=== PATIENT | male | born 2000 | race Caucasian/White ===

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

== ENCOUNTER 2022-02-01 15:08 | Emergency (ER) | payer MEDICAID, SELFPAY ==
[2022-02-01 15:16] VITALS: BP 124/74; PULSE 117; RESP 18; TEMP 37.3; O2SAT 96
[2022-02-01] MEDS: Normal Saline 1,000 ML 1000 ML IV (16:05)
--- NOTE | 2022-02-01 16:06 | W.ED.GENAD ---
Discharge Plan Disposition Patient Disposition: HOME Condition: Stable Discharge Details Clinical Impression: Mononucleosis, Elevated liver transaminase level Primary Care Provider: Jasmina Martin ED Provider: Martha Katz Home Meds and New Rx's Prescriptions: No Action No Known Home Meds Discharge Instructions Instructions: Mononucleosis (ED) Additional Instructions: At this time your liver enzymes are elevated this can be expected with mononucleosis. However a hepatitis panel which is a send out was added onto your labs. This usually will be resulted in approximately 2 to 3 days. Please follow-up with your dental therapist or primary care provider next week for reevaluation and recheck of the lab tests. Please return to the ER for any worsening abdominal pain, fever not relieved by Tylenol or ibuprofen, or concerns. Follow up with primary care provider in 3-5 days. Return to ED sooner if any worsening or concerns. Increase oral fluids. Use some [id number] throat numbing medicine such as Cepacol lozenges or similar. Referrals: Jasmina Martin MD [Primary Care Provider] - 5 days ([facility] Re-check and elevated liver enzymes re-eval) Discharge Data Discharge Date/Time-TO BE ENTERED AT DEPARTURE: 02/01/22 17:31 Medical Decision Making 22 year old male presents to the ED with chief c/o of sore throat, body aches, sweats, headaches and mild abdominal pain after being diagnosed with [facility] on Friday. He denies and recent abdominal trauma, denies N/V/D. Has not had any Ibuprofen or tylenol today. Upon initial exam, he is stable, HR 85, nondistended abdomen, nontender with palpation. Posterior oropharynx is erythemic, no exudate. At this time CBC, CMP 1 L normal saline ordered. CBC shows white blood cell count of 23,000, absolute lymphocytes 16.34, monocytes 3.22, this is to be expected with the mononucleosis infection. Patient also has some elevated liver enzymes AST is 168, ALT 169 alk phos is 261. After further questioning patient does endorse daily alcohol use he reports approximately 6 drinks a day. He reports not drinking for the last week due to illness. Hepatitis panel sent instructed mom and patient to follow-up with primary care next week to have liver enzymes repeated and reevaluation. At this time heart rate is NSR at a rate of 84. Discussed to continue with ibuprofen or Advil increase fluids and to be seen sooner for any worsening abdominal pain or concerns. Mom and patient verbalized understanding and are in agreement with the plan. I did offer CT abdomen pelvis and shared decision making performed and at this time opted to forego imaging. Discussed tricked return instructions with mom and patient. Discussed follow-up care and home care. This text was generated using StudyRoomation system, please disregard any oddities of phrase or misspellings. This text was generated using [employer]Room[employer] system, please disregard any oddities of phrase or misspellings. Medical Records Medical records reviewed: Yes I reviewed the patient's medical records. Lab Data Lab results reviewed: Yes I reviewed the patient's lab results. Labs: Laboratory Tests Range/Units 02/01/22 02/01/22 16:05 16:05 WBC (4.4-10.8) 10^3/uL 23.01 H RBC (4.36-5.78) 10^6/uL 5.41 Hgb (13.5-17.5) g/dL 16.1 Hct (40.0-50.0) % 47.6 MCV (80-95) fL 88 MCH (27.0-33.0) pg 29.8 MCHC (32.0-36.0) % 33.8 RDW (11.8-14.1) % 12.6 Plt Count (130-400) 10^3/uL 156 MPV (8.0-11.0) fL 10.3 Immature Gran % 0.0 Neutrophils % 15.0 Lymphocytes % 19.0 Atypical Lymphs % 52 Monocytes % 14.0 Eosinophils % 0.0 Basophils % 0.0 Nucleated RBC % (0.0-0.3) % 0.0 Absolute Neutrophils (1.2-6.7) 10^3/uL 3.45 Absolute Lymphocytes (1.2-3.4) 10^3/uL 16.34 H Absolute Monocytes (0.1-0.8) 10^3/uL 3.22 H Absolute Eosinophils (0.0-0.7) 10^3/uL 0.00 Absolute Basophils (0.0-0.2) 10^3/uL 0.00 RBC Morphology Normal Sodium (136-145) mmol/L 136 Potassium (3.5-5.1) mmol/L 4.0 Chloride (98-107) mmol/L 101 Carbon Dioxide (21.0-32.0) mmol/L 24.5 Anion Gap (3-11) mmol/L 10.5 BUN (7-18) mg/dL 7 Creatinine (0.70-1.30) mg/dL 1.0 Estimated GFR/1.73 m2 (mL/min/1.73m2) >= 60.00 Glucose (74-106) mg/dL 89 Calcium (8.5-10.1) mg/dL 8.9 Total Bilirubin (0.2-1.0) mg/dL 0.5 AST (15-37) U/L 160 H ALT (16-63) U/L 169 H Alkaline Phosphatase (46-116) U/L 261 H Total Protein (6.4-8.2) g/dL 8.2 Albumin (3.4-5.0) g/dL 3.3 L HPI General Mode of arrival: ambulatory. Date/Time Provider Initiated Documentation: 02/01/22 15:41. Limitations to Documentation: no limitations. Information obtained by: patient, family (Mom), RN notes reviewed and old records reviewed. HPI Narrative: 22 year old male presents to the ED with chief c/o of sore throat, body aches, sweats, headaches and mild abdominal pain after being diagnosed with [facility] on Friday. He denies and recent abdominal trauma, denies N/V/D. Has not had any Ibuprofen or tylenol today. Upon initial exam, he is stable, HR 85, nondistended abdomen, nontender with palpation. Posterior oropharynx is erythemic, no exudate. Related Data Home Medications Medication Instructions Recorded Confirmed Unknown [No Known Home Meds] 09/28/18 02/01/22 Allergies Allergy/AdvReac Type Severity Reaction Status Date / Time No Known Allergies Allergy Verified 02/01/22 15:19 General Stated Complaint: Sorethroat IDALIA: 3 Review of Systems All systems reviewed & are unremarkable except as noted in HPI and below Constitutional Constitutional: Reports body ache(s), Reports fatigue, Reports headache(s) and Reports lethargy ENT Ears, Nose, Mouth, and Throat: Reports as per HPI, Reports headache(s), Denies neck mass, Denies neck pain and Reports sore throat Gastrointestinal Gastrointestinal: Denies melena, Denies diarrhea, Denies nausea and Denies vomiting Musculoskeletal Musculoskeletal: Denies neck pain Neurologic Neurologic: Reports headache(s) Endocrine Endocrine: Reports fatigue PFSH All Active Problems Elevated liver transaminase level (Acute) Mononucleosis (Acute) Medical History Concussion Family History Mother Neoplasm breast ca Asthma childhood Father No problems noted. Grandparent Diabetes Essential hypertension Heart disease Other Depression Social History Smoking/Tobacco Use Status: Never Smoking risk assessment performed?: Yes Alcohol Intake: current Alcohol Intake frequency: a few times a week Alcohol type: beer Drug use: Daily Substance use type: marijuana Pets and animals: Yes Pets and animals: cat(s) Do you feel safe at home: Yes Do you feel safe in your relationship?: Yes Exam Narrative Exam Narrative: constitutional: Alert and oriented x3. Appears stated age. Normal body habitus. Head: Normocephalic, no trauma. Eyes: Pupils PERRL, Red reflex noted, EOM's intact. Eyelids symmetrical without lesions, discharge, or swelling. ENT: Bilateral TM's WNL, External ear normal to inspection, no mastoid TTP, swelling, or erythema, Nasal turbinates WNL, no nasal discharge. Normal dentition, Posterior pharynx erythemic, no exudate. Chest: RRR, Normal S1, S2, distal pulses intact. Resp: Lungs clear to auscultation bilaterally, no wheezes, rales, or rhonchi. Abdomen: Soft, non-distended, Normoactive bowel sounds all 4 quads. Nontender all 4 quadrants Musculoskeletal: Normal gait, 5/5 strength to all four extremities. Skin: No suspicious rashes or lesions. Capillary refill less than 2 sec. Neurologic: Cranial nerves II-XII intact. Alert and oriented x 3. Motor: No deficits noted. Hematologic/Lymphatic: No ecchymosis, no cervical lymphadenopathy. Course Vital Signs Vital signs: Vital Signs Temperature 37.3 C 02/01/22 15:16 Pulse 117 H 02/01/22 15:16 Respiratory Rate 18 02/01/22 15:16 Blood Pressure 124/74 02/01/22 15:16 Pulse Oximetry 96 02/01/22 15:16 Temperature 37.3 C 02/01/22 15:16 Temperature Source Skin 02/01/22 15:16 Pulse 117 H 02/01/22 15:16 Respiratory Rate 18 02/01/22 15:16 Blood Pressure 124/74 02/01/22 15:16 Blood Pressure Position Sitting 02/01/22 15:16 Pulse Oximetry 96 02/01/22 15:16 Oxygen Delivery Method Room Air 02/01/22 15:16 Oxygen Flow Rate 0 02/01/22 15:16 Pain Level 7 02/01/22 15:16 Comment 02/01/22 15:16
[2022-02-01 16:17] LABS: Abs Immature Grans 0.04 10^3/uL (0.0-0.06); HCT 47.6 % (40.0-50.0); HGB 16.1 g/dL (13.5-17.5); MCH 29.8 pg (27.0-33.0); MCHC 33.8 % (32.0-36.0); MCV 88 fL (80-95); MPV 10.3 fL (8.0-11.0); Platelet Count 156 10^3/uL (130-400); RBC 5.41 10^6/uL (4.36-5.78); RDW 12.6 % (11.8-14.1); RDW-SD 40.9 fL; WBC 23.01 10^3/uL (4.4-10.8)
[2022-02-01] MEDS: Acetaminophen 500 MG TAB PO (16:24)
[2022-02-01 16:30] LABS: ALT 169 U/L (16-63); AST 160 U/L (15-37); Albumin 3.3 g/dL (3.4-5.0); Alkaline Phosphatase 261 U/L (46-116); Anion Gap 10.5 mmol/L (3-11); BUN 7 mg/dL (7-18); Bilirubin, Total 0.5 mg/dL (0.2-1.0); CO2 24.5 mmol/L (21.0-32.0); Calcium 8.9 mg/dL (8.5-10.1); Chloride 101 mmol/L (98-107); Glucose 89 mg/dL (74-106); Sodium 136 mmol/L (136-145); Total Protein 8.2 g/dL (6.4-8.2)
[2022-02-01 16:37] LABS: Absolute Lymphocyte Count 16.34 10^3/uL (1.2-3.4); Absolute Monocyte Count 3.22 10^3/uL (0.1-0.8); Absolute Neutrophil Count 3.45 10^3/uL (1.2-6.7); Atypical Lymphocytes % 52; Diff Comment Manual Differential; RBC Morphology Normal
--- NOTE | 2022-02-01 17:02 | NUR.NOTE ---
Nursing Note: PT INFO FAXED TO [facility] FOR FOLLOW UP IN A WEEK TO HAVE LIVER ENZYMES REEVALUATED. STEPHANIE ED
[2022-02-01 17:19] VITALS: BP 114/68; PULSE 79; RESP 16; TEMP 37; O2SAT 97
[2022-02-04 11:40] LABS: Hepatitis A Antibody IgM Negative (Negative); Hepatitis B Core Antibody Negative (Negative); Hepatitis B surface Ag Negative (Negative); Hepatitis C Ab w Rflx HCV PCR Negative (Negative)
== END 2022-02-01 17:31 | disposition home or self-care (01) ==
PROVIDERS: Emergency Provider Registered Nurse Emergency
DX: B27.90 Infectious mononucleosis, unspecified without complication (principal); R74.01 Elevation of levels of liver transaminase levels; F10.10 Alcohol abuse, uncomplicated
CPT/HCPCS: 36415; 80053; 86704; 86709; 86803; 87340; 96360; 99284; 85025; 99283

== ENCOUNTER 2023-03-16 12:08 | Emergency (ER) | payer BC, SELFPAY ==
[2023-03-16 12:27] VITALS: BP 122/61; PULSE 89; RESP 18; TEMP 37.1; O2SAT 99
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
--- NOTE | 2023-03-16 15:01 | DI.VRAD_ITS ---
PROCEDURE INFORMATION: Exam: XR Left Knee Exam date and time: 03/16/2023 2:47 PM Age: 23 years old Clinical indication: Other: Trauma TECHNIQUE: Imaging protocol: Radiologic exam of the left knee. Views: 3 views. COMPARISON: No relevant prior studies available. FINDINGS: Bones/joints: There is a large joint effusion. There is some lucency at the proximal tibial midline from the intercondylar notch. This is appreciated best on the tunnel view and may be artifact. No definite cortical offset is identified. Soft tissues: Normal. IMPRESSION: Large joint effusion. Subtle vertical tibial fracture not excludable. Dictated and Authenticated by: Zoila Miller MD. Ordering:SCOTT Philip MD
--- NOTE | 2023-03-16 15:15 | DI.CT_ITS ---
Exam(s) CT LOWER EXTREMITY LT WO EXAM: CT LOWER EXTREMITY LT WO CLINICAL HISTORY: KNEE PAIN. TECHNIQUE: Imaging Protocol: Axial computed tomography images with coronal and sagittal reformatted images were created and reviewed. CONTRAST MATERIAL: Intravenous: Omnipaque 350 Contrast volume:structured data in ml Contrast route:I V - Oral: yes / no COMPARISON: CR,XR XR KNEE LT 3V AP,LAT,CHANA from 03/16/2023 FINDINGS: There is no evidence of fracture. There is slight indentation of the articular surface of the latera l femoral condyle both out a distinct osteochondral defect at this level. No joint space narrowing. Minimal increased joint fluid. No prominent joint effusion. IMPRESSION: No evidence of acute fracture in the knee. No prominent joint effusion. RADIATION DOSE DELIVERED: 273.48mGy.cm Total DLP DATA REPOSITORY: All CT scans at this facility are submitted to the National Radiology Data Registry (NRDR) Dose Index Registry (DIR) with the [employer] (ACR). RADIATION OPTIMIZATION: All CT scans at this facility use at least one of these dose optimization te chniques: automated exposure control; mA and/or kV adjustment per patient size (includes targeted exa ms where dose is matched to clinical indication); or iterative reconstruction.
--- NOTE | 2023-03-16 15:57 | DI.VRAD_ITS ---
PROCEDURE INFORMATION: Exam: CT Left Lower Extremity With Contrast, Knee Exam date and time: 03/16/2023 3:34 PM Age: 23 years old Clinical indication: Other: Knee pain TECHNIQUE: Imaging protocol: CT of the left lower extremity with intravenous contrast was performed. Exam focused on the knee. Radiation optimization: All CT scans at this facility use at least one of these dose optimization techniques: automated exposure control; mA and/or kV adjustment per patient size (includes targeted exams where dose is matched to clinical indication); or iterative reconstruction. COMPARISON: CR XR KNEE LT 3V AP,LAT,CHANA 03/16/2023 2:47 PM FINDINGS: Bones/joints: There is a minimal joint effusion, much smaller than expected based on plain film appearances. There is some prepatellar contusion. Bone density is appropriate. Bony alignment is anatomic. No evidence for fracture. Soft tissues: Normal. IMPRESSION: Small joint effusion without evidence for fracture. Dictated and Authenticated by: Zoila Miller MD. Ordering:SCOTT Philip MD
[2023-03-16 16:57] VITALS: BP 126/78; PULSE 72; RESP 16; O2SAT 100
== END 2023-03-16 17:14 | disposition home or self-care (01) ==
PROVIDERS: Emergency Provider Emergency Medicine
DX: M25.562 Pain in left knee (principal); M25.462 Effusion, left knee; Y92.488 Other paved roadways as the place of occurrence of the external cause; Y93.55 Activity, bike riding; Y99.9 Unspecified external cause status
CPT/HCPCS: 73562; 99285; 73700; 99283

== ENCOUNTER → 2023-04-15 01:35 | Outpatient (CLI) | payer BC, SELFPAY ==
--- NOTE | 2023-04-15 08:45 | DI.MRI_ITS ---
Exam(s) MR LOWER JOINT LT WO EXAM: MR LOWER JOINT LT WO CLINICAL HISTORY: PAIN, MCL SPRAIN LT KNEE, S83.412A. TECHNIQUE: Multiplanar multisequence MRI was performed. COMPARISON: CT CT LOWER EXTREMITY LT WO from 03/16/2023 CR,XR XR KNEE LT 3V AP,LAT,CHANA from 03/16/2023 FINDINGS: BONES: There is a large bone bruise involving the lateral femoral condyle. There also areas of marro w edema in the lateral tibial plateau and the medial femoral condyle. There is a depression lateral femoral condyle. JOINTS: Articular cartilage is unremarkable. There is a small joint effusion. No loose body is ident ified. TENDONS: Extensor mechanism: Unremarkable. Medial retinaculum: Unremarkable. Lateral retinaculum: Unremarkable. Popliteus: Unremarkable. MUSCLES: Unremarkable. MENISCI: The medial meniscus is unremarkable. There is a tear of the posterior horn of the lateral m eniscus. SOFT TISSUES: There is edema seen in the soft tissues around the knee particularly laterally. LIGAMENTS: Anterior Cruciate: There is a tear of the anterior cruciate ligament. Posterior Cruciate: Unremarkable. Medial Collateral:Unremarkable. Lateral Collateral: There is a sprain of the lateral collateral ligament without evidence of a tear. OTHER: IMPRESSION: 1. ACL tear. 2. LCL sprain. 3. Question of a tear of the posterior horn of the lateral meniscus. 4. Large bone contusions involving the lateral femoral condyle and lateral tibial plateau. Smaller c ontusion involving the medial femoral condyle. 5. Small joint effusion. Soft tissue edema. DATA REPOSITORY:
== END ==
PROVIDERS: PCP Nurse Practitioner Family; Visit Provider Student in an Organized Health Care Education/Training Program
DX: M23.612 Other spontaneous disruption of anterior cruciate ligament of left knee (principal); S83.422A Sprain of lateral collateral ligament of left knee, initial encounter; X58.XXXA Exposure to other specified factors, initial encounter
CPT/HCPCS: 73721

== ENCOUNTER 2023-05-15 08:58 | Day surgery (SDC) | payer BC, SELFPAY ==
[2023-05-15] VITALS (19 sets, daily range): BP systolic 107–127; BP diastolic 60–85; PULSE 38–64; RESP 13–22; TEMP 36.1–36.6; O2SAT 97–100; BMI 25.7
--- NOTE | 2023-05-15 07:27 | W.PM.DSUDISC ---
Date of service: 05/15/23 Time of Service: 15:00 Discharge Plan Disposition Patient Disposition: Home Condition: Stable Discharge Details Attending Provider: Drew Clinton Primary Care Provider: Chayo,Local Home Meds and New Rx's Prescriptions: New naproxen 250 mg tablet 250 - 500 mg PO BID PRNQty: 40 0RF Rx Instructions: take with a meal aspirin 81 mg tablet,delayed release (DR/EC) 81 mg PO DAILY 14 Days Qty: 14 0RF oxycodone 5 mg tablet 5 - 10 mg PO Q4H MDD 30 mg PRN (Reason: moderate to severe pain) Qty: 18 0RF Discharge Instructions Additional Instructions: Surgery: Left knee arthroscopy with quadriceps allograft ACL reconstruction and lateral meniscus repair Activity: Partial weightbearing (less than 50%) with crutches for 6 weeks. Seated/ non-weight bearing flexion 0-90 degrees maximum for 6 weeks. 120 degrees maximum flexion for 8 weeks. Spin/bike after 8 weeks. Mini squats at 10 weeks. MOLINA ACL reconstruction protocol after 12 weeks. Prescriptions: Aspirin 81 mg take 1 daily to prevent a blood clot for 14 days Naproxen 250 mg take 1-2 every 12 hours with a meal as needed for moderate pain Oxycodone 5 mg take 1-2 every 4-6 hours as needed for severe pain You may use [id number]-cozvsfe Tylenol (acetaminophen) as needed for mild pain. These pain medications may be taken all at once or in different combinations as needed. Also, recommend Colace (docusate) as a stool softener as surgery and pain medicine cause constipation. You may try navz-bdl-amcpzec diphenhydramine (Benadryl) 25-50 mg nightly as a sleep aid Dressings: Leave dressing in place for 3 days. May then remove and leave open to air or cover incisions with Band-Aids. Leave the sticky Steri-Strips in place until they fall off or remove them after you shower. May shower after 5 days. Follow-up: 10-[address] Clinton You may take off the leg compression stockings this evening at home. You may also leave them on a few days longer if you have a history of leg swelling or edema. Let us know right away if you develop any redness, drainage, fevers, chest pain, or trouble breathing. Do not drink alcohol or drive for at least 24 hours after anesthesia. Please call the office during business hours with any questions or concerns. Stand Alone Forms: Anes.Nerve Block Instructions, Gunner Davis (DSU) Discharge Orders Discharge Orders: Discharge Order (Routine); Ordered 05/15/23 Ordered By: Drew Clinton DS: Diagnosis Discharge Diagnosis (1) Complete tear of anterior cruciate ligament of left knee: Status: Acute (2) Acute tear of posterior horn of lateral meniscus: Status: Acute
--- NOTE | 2023-05-15 07:29 | W.PM.OP ---
Date of service: 05/15/23 Time of Service: 12:00 Operative Note Operative Note DATE OF PROCEDURE: 05/15/23 PRE-OP DIAGNOSIS: Left knee: 1. ACL rupture 2. Lateral meniscus tear PROCEDURE: Left knee: 1. ACL reconstruction, CPT #74645: Quadriceps allograft 2. Lateral meniscus repair, CPT #88776 SURGEON: Drew Clinton INSTRUMENT DESIGNER: Andre Mckeon ANESTHESIA TYPE: Local By Surgeon, General LMA/ETT and Primary Nerve Block Refer to Anesthesia Record ESTIMATED BLOOD LOSS: 5 TOURNIQUET TIME: 0 COMPLICATIONS: None Patient was transported to: PACU Patient's condition: stable Implants: Arthrex ACL TightRope II RT and ABS with 8x12 mm cortical button QuadLink pre-sutured quadriceps allograft: 10 x68 mm Indications: Please see complete medical record for details. Findings: Exam under anesthesia: Full range of motion, grossly positive Yusef exam, stable varus and valgus stress Arthroscopic findings: Complete ACL disruption mid substance to proximal. Incomplete versus partially healed posterior horn lateral meniscus tear that extended near the root and a largely red-white oblique tear pattern. Root otherwise intact. Remainder of the posterior horn body and anterior horn intact. Intact articular cartilage throughout. Intact medial meniscus. Intact PCL. Moderately sized medial gutter plica. Procedure Description: In the operating room, general anesthesia was induced. The patient was positioned supine on the operating room table. All bony prominences were well-padded. Preoperative antibiotics were administered. The knee was prepped and draped in the usual sterile fashion. The correct patient, procedure, and side of the procedure were all verified prior to incision. Exam under anesthesia was performed. Local anesthetic containing epinephrine was infiltrated about the planned anteromedial, anterolateral, lateral distal femoral, and pretibial surgery sites. The standard high and tight anterolateral and anteromedial portals were established and a complete diagnostic arthroscopy was performed with relevant findings detailed above. A passport cannula was inserted in both the anteromedial and anterolateral portals. A moderately sized medial gutter plica was resected with the mechanical shaver. The lateral meniscus was thoroughly probed and inspected. The posterior horn near the root had to small tears in the red-white zone that were obliquely oriented toward the capsule but did not propagate from the superior leaflet all the way through the inferior side of the meniscus. The tears were relatively small about 6-8 mm together from slightly off the root into the posterior horn. There was some fraying of the superior leaflet that was trimmed with the mechanical shaver lightly. The meniscus rasp was used to probe and abrade both tear regions to optimize healing. The remainder of the posterior horn was intact. These tears did correlate with the MRI although slightly closer to the root and with probable partial healing of some portion of the posterior horn tearing. Given young age and concomitant ACL surgery, decision was made to proceed with repair. The meniscus was stable to the root and had intact meniscal femoral ligaments as well. Decision was made to proceed with all inside suture only repair. The knee scorpion was loaded with a 0.9 mm suture tape and used to place a circumferential stitch at the lateral margin of the tear, which was secured with SMC arthroscopic knot directing the knot inferior and posterior to the meniscus. This was repeated with the knee scorpion through the anterior lateral portal to better place an additional circumferential stitch around the tears at the medial margin of the meniscus towards the root and again secured with SMC arthroscopic knot directing the knot inferior and posterior to the meniscus. The tears were stable and secured with these repair sutures. In the intercondylar area, the ACL remnant was removed leaving enough footprint on the femur and tibia to localize anatomic socket placement. A small notchplasty was performed to allow proper visualization of the back wall. The graft was measured and prepared on the back table. The TightRope II BTB and TightRope II ABS adjustable-loop cortical suspensory fixation implants were loaded on QuadLink pre-sutured quadriceps allograft. The femoral and tibial ends each measured 9.5 mm. The graft was marked at 20 mm from each end. On the ABS side, the tensioning sutures were marked and a shuttle suture was added. The graft was manually tensioned and the construct did not demonstrate any elongation. The graft was then compressed in a graft tube and covered with vancomycin soaked sponges. The femoral guide was then placed through the anterolateral portal carefully targeting the appropriate anatomic ACL origin. The outer 9 mm diameter of the guide was positioned anatomically with appropriate space between the proximal and posterior articular margins. On the lateral thigh, drill guide position and angle adjusted to about 60 degree angle to the longitudinal axis of the femur in the coronal plane and 20 degree angle to the trans-epicondylar axis in the axial plane to create the most optimal femoral socket. Knife and snap were used to open the skin and IT band and placed the drill guide on bone while maintaining appropriate position on the lateral wall. The tunnel length was noted to be used for marking and passing the femoral button. The flip cutter was then drilled to the appropriate location. The drill guide malleted 7 mm into the cortex. The remainder of the targeting guide removed. The FlipCutter was deployed to 9.5mm and retrograde reaming done to a depth of 35 mm. Bony debris was removed with the shaver. The flip cutter was then closed, withdrawn, and a FiberStick used to pass a #2 FiberWire shuttle stitch, which was withdrawn out the anterolateral portal. The tibial guide was then used to target the anatomic ACL insertion through the anteromedial portal. The drill angle adjusted to 55 degrees and a pretibial incision made. The drill guide was placed on bone, tunnel length noted, and the flip cutter drilled to the appropriate location. The drill guide malleted 7 mm into the cortex. The remainder of the targeting guide removed. The FlipCutter was deployed to 9.5mm and retrograde reaming done to a depth of 30 mm. Bony debris was removed with the shaver. The flip cutter was then closed, withdrawn, and a FiberStick used to pass a #2 FiberWire shuttle stitch, which was withdrawn out the anteromedial portal. The mechanical shaver was used to remove bone debris as well as chamfer and remove soft tissue from the edges of the sockets. A femoral shuttle sutures were withdrawn out the anterior medial portal. The PassPort was removed. This portal dilated to accommodate the graft size. The graft was brought over to the knee and the femoral sutures shuttled out the lateral thigh and advanced until the button was near the far cortex. Under arthroscopic visualization with the knee slightly hyperflexed, and the button was then passed and flipped on the far cortex. Counter traction was then maintained on the tibial side of the graft while it was carefully advanced into the knee and then about 15 mm into the femoral socket. The tibial sutures were then shuttled through the tibial tunnel and passing stitch removed while carefully noting the tensioning stitches. The graft was then dunked about 15 mm into the tibial socket. 8x12 mm ABS button was then loaded to the ABS loop and tension sutures used to bring the cortical button down to bone. The graft was advanced to about 20 mm into each socket and then provisionally tensioned on both the femoral and tibial sides. The knee was then cycled 22 times, tensioning rechecked, and final tightening done with the knee in full extension with a moderate reverse Yusef maintained. The graft position and tension were appropriate. There was no impingement in full extension. Yusef exam was very stable. Femoral passing sutures were removed. Backup knots were then tied on both sides and suture tails cut. The knee and all portals were copiously irrigated and then knee drained of arthroscopic fluid. 3-0 Monocryl was used to close the portals and small incisions in a buried interrupted fashion. Mastisol, Steri-Strips, Xeroform, 4 x 4 gauze, and sterile soft roll was applied. The extremity was wrapped gently with an Seamus bandage. A soft knee immobilizer placed. The patient awoke from anesthesia without complication and was transferred to the recovery room in a stable condition.
[2023-05-15] MEDS: Lactated Ringers 1,000 ML 30 ML IV (09:45)
--- NOTE | 2023-05-15 10:47 | W.ANESPRE ---
General Info Date of Service Date Performed: 05/15/23 Height: 6 ft Weight: 86.1 kg Body Mass Index (BMI): 25.7 Surgical Procedure: Operation Date: 05/15/23 11:25 Proposed Procedure Side Surgeon p Knee ACL Reconstruction, Allograft, Lateral Meniscus Repair Left Drew Clinton MD Meds Allergies and Home Medications Allergies Allergy/AdvReac Type Severity Reaction Status Date / Time No Known Allergies Allergy Verified 05/15/23 09:28 Home Medication Medication Instructions Recorded Unknown [No Known Home Meds] 03/25/23 Current Visit Medications: Current Medications Generic Name Dose Route Start Last Admin Trade Name Freq PRN Reason Stop Dose Admin Ringer's Solution 1,000 mls @ 30 mls/hr 05/15/23 06:00 05/15/23 09:45 IV 05/15/23 23:59 30 mls/hr INFUSION MAXIMILIAN Administration Cefazolin Sodium/Dextrose 2 gm in 50 mls @ 100 mls/hr 05/15/23 06:00 Ancef Duplex IVPB 05/15/23 23:59 PREOP MAXIMIILAN IV Miscellaneous Supplies 1 each 05/15/23 06:00 Iv Access IV 05/15/23 23:59 DIRECTED MAXIMILIAN Oxycodone HCl 0 mg 05/15/23 07:27 Oxycodone 5 Mg Tab PO 06/14/23 07:26 Q3H PRN PRN Pain Sodium Chloride 0 ml 05/15/23 06:00 Normal Saline Flush 10 Ml Syr IV 05/15/23 23:59 PRN PRN Sodium Chloride 0 ml 05/15/23 06:00 Normal Saline 10 Ml Vial IJ 05/15/23 23:59 DIRECTED PRN Sterile Water 0 ml 05/15/23 06:00 Water,Injection,Sterile 10 Ml Vial IJ 05/15/23 23:59 DIRECTED PRN PFSH Active Problems Active Problems: Problem Status Onset Code Mononucleosis B27.90 Complete tear of anterior cruciate ligament of left knee ~03/16/23 S83.512A Acute tear of posterior horn of lateral meniscus ~03/16/23 S83.289A Medical History Medical History Concussion Surgical History Surgical History Hx of wisdom tooth extraction Tobacco Smoking/Tobacco Use Status: Never Passive smoking exposure: No Alcohol Alcohol Intake: current Alcohol intake frequency: a few times a week Alcohol type: beer Substance Use Substance use: Daily Substance use type: marijuana Vital Signs and Lab Results Vital Signs Most Recent Vital Signs in EMR: Most Recent Vital Signs Temp Pulse Resp BP Pulse Ox 36.5 C 51 L 18 127/70 99 05/15/23 09:21 05/15/23 09:21 05/15/23 09:21 05/15/23 09:21 05/15/23 09:21 Lab Results Blood Type / Crossmatch: No Data to Display Complete Blood Count: No Data to Display Complete Metabolic Panel: No Data to Display Liver Function Panel: No Data to Display Coagulation Panel: No Data to Display Cardiac Panel: No Data to Display Arterial Blood Gas: No Data to Display Venous Blood Gas: No Data to Display Pancreas Panel: No Data to Display Thyroid Panel: No Data to Display Infectious Disease: No Data to Display Blood Cultures: No Data to Display Toxicology Panel: No Data to Display Anesthesia Assessment and Plan Anesthesia History Personal History: No History of Anesthesia Complications Family History: No Family History of Anesthesia Complications Exercise Tolerance Exercise Tolerance: Metabolic Equivalents>4 Pertinent Negatives Pertinent Negatives: No Symptoms of GERD, No Major Cardiovascular Symptoms or Complaints, No Major Pulmonary Symptoms or Complaints and No History of CVA/TIA Cardiac & Pulmonary Exam Cardiac Exam: Normal S1/S2 Heart Sounds Pulmonary Exam: Clear Bilateral Breath Sounds Implantable Cardiac Device Does patient have a Pacemaker or an ICD?: No Airway Exam Known Difficult Airway: No Mallampati Class: 1 Mouth Opening: Normal (> 3cm) Thyromental Distance: Greater than 3 cm Neck Range of Motion: Full ROM Neck Circumference: Normal Teeth Condition: Normal Dentition ASA Classification ASA Score: ASA 2 Emergency Case?: No NPO Status NPO Status: NPO Clears >2 hours, Solids >8 hours Anesthesia Plan Resuscitation Status: Full Code Anesthesia Technique: General Anesthesia Airway Planned: LMA Pain Management: Surgeon and patient request nerve block Monitors Used: Standard Monitors
--- NOTE | 2023-05-15 11:38 | W.ANESNERVE ---
Nerve Block Single Injection Procedure Date and Time Date Performed: 05/15/23 Procedure Start: 11:22 Location Where Procedure Performed Procedure Location: Day Surgery Unit Reason Performed: Postoperative Analgesia Requesting Provider: Drew Clinton Timeout Performed Timeout Performed: Yes Monitoring Used ECG, Blood Pressure, SpO2 and See EMR for corresponding vital signs Sterility Sterility: Hand Hygiene, Surgical Cap, Surgical Mask, Sterile Gloves, Sterile Drape/Sheet and Chlorhexidine Sedation Given During Procedure Sedation Given (Indicate Dose Given): Versed IV Dose:: 2 mg Patient Mental Status Patient Mental Status: Awake Nerve Block 1st Nerve Block: Laterality: Left Block Type: Adductor Canal Ultrasound Image Saved?: Yes Needle / Catheter Used: 100mm SonoPlex II Local Anesthetic Bolus (Indicate Dose Given): Lidocaine used for local infiltration of skin, Injected in 3-5ml increments after negative blood aspiration, Bupivacaine 0.25% Dose:: 10 ml and Exparel Dose:: 10 ml Additives (Indicate Dose Given): None Ultrasound: Sterile probe cover and gel used Nerve Stimulator: Supplement to Ultrasound use and No twitch or parasthesia noted < 0.5 mA Paresthesia: None Procedure Tolerated: No Complications and Patient tolerated well Procedure Outcome: Successful Performed By: Ingris Davis
[2023-05-15] MEDS: ceFAZolin 2 GM/50 ML BAG IVPB (11:39)
[2023-05-15] MEDS: Bupivacaine 0.25% Pres-Free 30 ML VIAL (12:51)
[2023-05-15] MEDS: EPINEPHrine 30 MG/30 ML VIAL (14:01)
[2023-05-15] MEDS: oxyCODONE 5 MG TAB PO (15:45)
--- NOTE | 2023-05-15 16:19 | W.ANESPOSTOP ---
Postoperative Evaluation Date, Time and Location Date Performed: 05/15/23 Time Performed: 16:19 Patient Location: Day Surgery Unit Vital Signs Most Recent Imported Vital Signs: Most Recent Vital Signs Temp Pulse Resp BP Pulse Ox 36.6 C 51 L 18 112/72 99 05/15/23 16:05 05/15/23 16:05 05/15/23 16:05 05/15/23 16:05 05/15/23 16:05 Pain Score Most Recent Pain Score: Most Recent Pain Score Pain Level 2 05/15/23 16:05 Assessment Mental Status: Awake (Alert & Oriented to Patient Baseline) Airway and Respiratory Function: Patent airway with normal (patient baseline) respiratory exam Cardiovascular Function: Hemodynamically Stable Hydration Status: Adequately Hydrated Nausea & Vomiting: No Nausea or Vomiting Pain: Pain is tolerable per patient Peripheral Nerve Block: Regional nerve block not resolved at time of post operative discharge
== END 2023-05-15 17:00 | disposition home or self-care (01) ==
PROVIDERS: Visit Provider Student in an Organized Health Care Education/Training Program
PROC: (CPT 29888; principal; 2023-05-15 11:15)
DX: S83.512A Sprain of anterior cruciate ligament of left knee, initial encounter (principal); S83.289A Other tear of lateral meniscus, current injury, unspecified knee, initial encounter; X58.XXXA Exposure to other specified factors, initial encounter
CPT/HCPCS: 29888; 29882; J0131; J0690; J1100; J1885; J2250; J2405; J2704

== ENCOUNTER 2023-09-23 15:52 | Outpatient (CLI) | payer BC, SELFPAY ==
--- NOTE | 2023-09-23 15:30 | DI.RAD_ITS ---
Exam(s) XR KNEE LT 2V AP,LAT EXAM: XR KNEE LT 2V AP,LAT CLINICAL HISTORY: LEFT KNEE PAIN. TECHNIQUE: 2D digital imaging was performed. Two views. COMPARISON: MR MR LOWER JOINT LT WO from 04/15/2023 FINDINGS: BONES: No acute fracture is present. No bony destructive lesion is seen. Metallic densities relate d to ACL repair. JOINTS: The knee is normally aligned. A joint effusion is seen. The joint spaces are maintained. SOFT TISSUE: Normal. IMPRESSION: Joint effusion. DATA REPOSITORY: RADIATION DOSE DELIVERED:
== END 2023-09-23 15:53 | disposition home or self-care (01) ==
LOC: DIORS 15:55
PROVIDERS: Visit Provider Student in an Organized Health Care Education/Training Program
DX: S83.512A Sprain of anterior cruciate ligament of left knee, initial encounter (principal); X58.XXXA Exposure to other specified factors, initial encounter
CPT/HCPCS: 73560

== ENCOUNTER → 2023-10-06 02:22 | Outpatient (CLI) | payer BC, SELFPAY ==
--- NOTE | 2023-10-06 07:00 | DI.MRI_ITS ---
Exam(s) MR LOWER JOINT LT WO EXAM: MR LOWER JOINT LT WO CLINICAL HISTORY: eval tear of ACL graft,S83.512A,ACUTE TEAR lat men post horn, repaiR,S83.. TECHNIQUE: Multiplanar multisequence MRI was performed. COMPARISON: MR MR LOWER JOINT LT WO from 04/15/2023 CR XR KNEE LT 2V AP,LAT from 09/23/2023 FINDINGS: BONES: There is marrow edema seen in the medial lateral tibial plateau and the femoral condyles, late ral greater than medial. JOINTS: There is again seen cartilage thinning and a cortical depression in the lateral femoral condy le. The articular cartilage is otherwise well maintained. There is a small amount of fluid in the j oint space. There is a 1.1 cm curvilinear hypointense loose body in the lateral joint space. This m ay result from an osteochondral defect. TENDONS: Extensor mechanism: Unremarkable. Medial retinaculum: Unremarkable. Lateral retinaculum: Unremarkable. Popliteus: Unremarkable. MUSCLES: Unremarkable. MENISCI: The medial meniscus is unremarkable. The root of the lateral meniscus is poorly defined. It appears small with heterogeneous signal. This may represent degeneration or tear. The remainder of t he lateral meniscus is unremarkable. SOFT TISSUES: There is a small popliteal cyst. LIGAMENTS: Anterior Cruciate: There are findings of a prior anterior cruciate ligament repair. There is heteroge neous signal seen in the proximal ACL suspicious for partial tear. Posterior Cruciate: Unremarkable. Medial Collateral:Unremarkable. Lateral Collateral: Unremarkable. OTHER: IMPRESSION: 1. Findings of a prior ACL repair. There is heterogeneous signal and ill definition of the proximal r epaired ligament suspicious for partial tear. 2. Degeneration and/or tear involving the root of the lateral meniscus. 3. 1.1 cm curvilinear hypointense loose body in the lateral joint space. 4. Marrow edema seen in the distal femur and proximal tibia. DATA REPOSITORY:
== END ==
PROVIDERS: Visit Provider Student in an Organized Health Care Education/Training Program
DX: S83.512D Sprain of anterior cruciate ligament of left knee, subsequent encounter (principal); X58.XXXD Exposure to other specified factors, subsequent encounter
CPT/HCPCS: 73721

== ENCOUNTER 2023-12-05 09:24 | Day surgery (SDC) | payer BC, SELFPAY ==
[2023-12-05] VITALS (12 sets, daily range): BP systolic 107–136; BP diastolic 47–71; PULSE 47–70; RESP 12–18; TEMP 36.4–36.7; O2SAT 96–100; BMI 25.6
--- NOTE | 2023-12-05 07:20 | W.PM.DSUDISC ---
Date of service: 12/05/23 Time of Service: 14:00 Discharge Plan Disposition Patient Disposition: Home Condition: Stable Discharge Details Attending Provider: Drew Clinton Primary Care Provider: Chayo,Local Home Meds and New Rx's Prescriptions: New naproxen 250 mg tablet 250 - 500 mg PO BID PRN (Reason: moderate pain and swelling) Qty: 40 0RF oxycodone 5 mg tablet 5 - 10 mg PO .q4-6h PRN (Reason: severe pain) Qty: 18 0RF aspirin 81 mg capsule 81 mg PO DAILY 7 Days Qty: 7 0RF Discharge Instructions Additional Instructions: Surgery: Left knee arthroscopy with revision ACL reconstruction (allograft), partial lateral meniscectomy, and removal of hardware Activity: Weightbearing as tolerated. No brace or crutches needed as soon as comfortable and stable on knee. Restore full knee extension as soon as possible. Perform early quad sets/quadriceps isometrics. Gradually increase flexion to full. Recommend elevation to minimize swelling discomfort. Encourage ankle pumps and wiggle toes to improve circulation. A physical therapy prescription will be sent electronically to begin in 2 to 3 weeks. Avoid sports activities for about 9 months. Prescriptions: Aspirin 81 mg take 1 daily to prevent a blood clot for 14 days Naproxen 250 mg take 1-2 every 12 hours with a meal as needed for moderate pain Oxycodone 5 mg take 1-2 every 4-6 hours as needed for severe pain You may use [id number] Tylenol (acetaminophen) as needed for mild pain. These pain medications may be taken all at once or in different combinations as needed. Also, recommend Colace (docusate) as a stool softener as surgery and pain medicine cause constipation. You may try [id number] diphenhydramine (Benadryl) 25-50 mg nightly as a sleep aid Dressings: Loosen/adjust JOLYNN bandage for comfort. Leave dressing in place for 3 days. May then remove and leave open to air or cover incisions with Band-Aids. Leave the sticky Steri-Strips in place until they fall off or remove them after you shower. May shower after 5 days. Follow-up: 10-[address] Clinton You may take off the leg compression stockings this evening at home. You may also leave them on a few days longer if you have a history of leg swelling or edema. Let us know right away if you develop any redness, drainage, fevers, chest pain, or trouble breathing. Do not drink alcohol or drive for at least 24 hours after anesthesia. Please call the office during business hours with any questions or concerns. Stand Alone Forms: Anesthesia Discharge Inst., Celeste.Nerve Block Instructions, Gunner Davis (DSU) Discharge Orders Discharge Orders: Discharge Order (Routine); Ordered 12/05/23 Ordered By: Charlotte Perry DS: Diagnosis Discharge Diagnosis (1) Complete tear of anterior cruciate ligament of left knee: Status: Acute
--- NOTE | 2023-12-05 07:25 | ROE_ITS ---
Date of service: 12/05/23 Time of Service: 12:00 Operative Note Operative Note DATE OF PROCEDURE: 12/05/23 PRE-OP DIAGNOSIS: Left knee: 1. Recurrent ACL rupture 2. Lateral meniscus tear 3. Retained hardware PROCEDURE: Left knee: 1. Revision ACL reconstruction, CPT #77064: Quadriceps allograft 2. Partial lateral meniscectomy, CPT #97485 3. Removal of deep hardware, CPT #67488: Tibial & femoral cortical buttons SURGEON: Drew Clinton [employer] SALES MANAGER: Charlotte Perry ANESTHESIA TYPE: Local By Surgeon, General LMA/ETT and Primary Nerve Block Refer to Anesthesia Record ESTIMATED BLOOD LOSS: 5 TOURNIQUET TIME: 0 COMPLICATIONS: None Patient was transported to: PACU Patient's condition: stable Implants: Arthrex ACL TightRope II RT and ABS with 14 mm round cortical button QuadLink pre-sutured quadriceps allograft: 11 x70 mm Indications: Please see complete medical record for details. Findings: Exam under anesthesia: Full range of motion, grossly positive Yusef exam, stable varus and valgus stress. Positive pivot shift. Arthroscopic findings: Obvious complete disruption midsubstance ACL graft. White zone tearing posterior horn lateral meniscus near the root. Intact more posterior horn portion of the previous repair. Intact red:white and red zone root attachments. Intact medial meniscus. Mild chondromalacia distal lateral femoral condyle. Intact medial and patellofemoral cartilage. Procedure Description: In the operating room, general anesthesia was induced. The patient was positioned supine on the operating room table. All bony prominences were well- padded. Preoperative antibiotics were administered. The knee was prepped and draped in the usual sterile fashion. The correct patient, procedure, and side of the procedure were all verified prior to incision. Exam under anesthesia was performed. Local anesthetic containing epinephrine was infiltrated about the previous anteromedial, anterolateral, lateral distal femoral, and pretibial surgery sites. The standard high and tight anterolateral and anteromedial portals were established and a complete diagnostic arthroscopy was performed with relevant findings detailed above. Passport cannulas were inserted in both the anteromedial and anterolateral portals. The lateral meniscus repair was inspected. There was fraying and white zone tearing from the repair area to the root. It was resected using meniscal biters and shaver to a stable margin. The remainder of the posterior horn repair was intact. The root remained largely stable. In the intercondylar area, the ACL remnant was removed exposing the previous anatomic sockets. Graspers were used to remove as much exposed suture material from the sockets as possible. The pretibial and superolateral incisions were enlarged to approach each of the previous cortical buttoms, which were removed with their permanent suture material, to make room for the new hardware. The graft was measured and prepared on the back table. The TightRope II BTB and TightRope II ABS adjustable-loop cortical suspensory fixation implants were loaded on QuadLink pre-sutured quadriceps allograft. The femoral and tibial ends each measured 10mm. The graft was marked at 20 mm from each end. On the ABS side, the tensioning sutures were marked and a shuttle suture was added. The graft was manually tensioned and the construct did not demonstrate any elongation. The graft was then compressed in a graft tube and covered with vancomycin soaked sponges. The femoral guide was then placed through the anterolateral portal carefully targeting the appropriate anatomic ACL origin at the site of prior socket On the lateral thigh, the drill guide position and angle adjusted to about 60 degree angle to the longitudinal axis of the femur in the coronal plane and 20 degree angle to the trans-epicondylar axis in the axial plane to create the most optimal femoral socket. The tunnel length was noted to be used for marking and passing the femoral button. The flip cutter was then drilled to the appropriate location. The drill guide malleted 7 mm into the cortex. The remainder of the targeting guide removed. The FlipCutter was deployed to 10mm and retrograde reaming done to a depth of 30 mm. Bony debris was removed with the shaver. The flip cutter was then closed, withdrawn, and a FiberStick used to pass a #2 FiberWire shuttle stitch, which was withdrawn out the anterolateral portal. The tibial guide was then used to target the anatomic ACL insertion prior socket. The drill angle adjusted to 55 degrees. The drill guide was placed on bone, tunnel length noted, and the flip cutter drilled to the appropriate location. The drill guide malleted 7 mm into the cortex. The remainder of the targeting guide removed. The FlipCutter was deployed to 10mm and retrograde reaming done to a depth of 30 mm. Bony debris was removed with the shaver. The flip cutter was then closed, withdrawn, and a FiberStick used to pass a #2 FiberWire shuttle stitch, which was withdrawn out the anteromedial portal. The mechanical shaver was used to remove bone debris as well as chamfer and remove soft tissue from the edges of the sockets. A femoral shuttle sutures were withdrawn out the anterior medial portal. The PassPort was removed. This portal dilated to accommodate the graft size. The graft was brought over to the knee and the femoral sutures shuttled out the lateral thigh and advanced until the button was near the far cortex. Under arthroscopic visualization with the knee slightly hyperflexed, and the button was then passed and flipped on the far cortex. Counter traction was then maintained on the tibial side of the graft while it was carefully advanced into the knee and then about 15 mm into the femoral socket. The tibial sutures were then shuttled through the tibial tunnel and passing stitch removed while carefully noting the tensioning stitches. The graft was then dunked about 15 mm into the tibial socket. Given revision setting, the larger 14 mm round ABS button was then loaded to the ABS loop and tension sutures used to bring the cortical button down to bone. The graft was advanced to about 20 mm into each socket and then provisionally tensioned on both the femoral and tibial sides. The knee was then cycled 22 times, tensioning rechecked, and final tightening done with the knee in full extension with a moderate reverse Yusef maintained. The graft position and tension were appropriate. There was no impingement in full extension. Yusef exam was very stable. Femoral passing sutures were removed. Backup knots were then tied on both sides and suture tails cut. The knee and all portals were copiously irrigated and then knee drained of arthroscopic fluid. 2-0 monocryl was used to close deeper tissues and then 3-0 Monocryl was used to close the portals and small incisions in a buried interrupted fashion. Mastisol, Steri-Strips, Xeroform, 4 x 4 gauze, and sterile soft roll was applied. The extremity was wrapped gently with an Seamus bandage. The patient awoke from anesthesia without complication and was transferred to the recovery room in a stable condition.
[2023-12-05] MEDS: Lactated Ringers 1,000 ML 30 ML IV (10:10)
--- NOTE | 2023-12-05 10:16 | W.ANESPRE ---
General Info Date of Service Date Performed: 12/05/23 Height: 6 ft Weight: 85.7 kg Body Mass Index (BMI): 25.6 Surgical Procedure: Operation Date: 12/05/23 11:55 Proposed Procedure Side Surgeon p Knee ACL Reconstruction Revision (Allograft) Left Drew Clinton MD s Hardware Removal Left Drew Clinton MD Meds Allergies and Home Medications Allergies Allergy/AdvReac Type Severity Reaction Status Date / Time No Known Allergies Allergy Verified 12/05/23 09:39 Home Medication Medication Instructions Recorded Unknown [No Known Home Meds] 06/25/23 Current Visit Medications: Current Medications Generic Name Dose Route Start Last Admin Trade Name Freq PRN Reason Stop Dose Admin Ringer's Solution 1,000 mls @ 30 mls/hr 12/05/23 06:00 12/05/23 10:10 IV 12/16/23 23:59 30 mls/hr INFUSION MAXIMILIAN Administration Cefazolin Sodium/Dextrose 2 gm in 50 mls @ 100 mls/hr 12/05/23 06:00 Ancef Duplex IVPB 12/05/23 23:59 PREOP MAXIMILIAN Tranexamic Acid/Sodium Chloride 1,000 mg in 100 mls @ 600 mls/hr 12/05/23 06:00 IVPB 12/05/23 16:00 PREOP MAXIMILIAN IV Miscellaneous Supplies 1 each 12/05/23 06:00 Iv Access IV 12/16/23 23:59 DIRECTED MAXIMILIAN Oxycodone HCl 0 mg 12/05/23 07:20 Oxycodone 5 Mg Tab PO 01/04/24 07:19 Q3H PRN PRN Pain Sodium Chloride 0 ml 12/05/23 06:00 Normal Saline Flush 10 Ml Syr IV 12/16/23 23:59 PRN PRN Sodium Chloride 0 ml 12/05/23 06:00 Normal Saline 10 Ml Vial IJ 12/16/23 23:59 DIRECTED PRN Sterile Water 0 ml 12/05/23 06:00 Water,Injection,Sterile 10 Ml Vial IJ 12/16/23 23:59 DIRECTED PRN PFSH Active Problems Active Problems: Problem Status Onset Code Mononucleosis B27.90 Complete tear of anterior cruciate ligament of left knee ~03/16/23 S83.512A Acute tear of posterior horn of lateral meniscus ~03/16/23 S83.289A Medical History Medical History Concussion Surgical History Surgical History Hx of wisdom tooth extraction Tobacco Smoking/Tobacco Use Status: Never Passive smoking exposure: No Alcohol Alcohol Intake: current Alcohol intake frequency: a few times a week Alcohol type: beer Substance Use Substance use: Daily Substance use type: marijuana Vital Signs and Lab Results Vital Signs Most Recent Vital Signs in EMR: Most Recent Vital Signs Temp Pulse Resp BP Pulse Ox 36.7 C 56 L 18 136/68 98 12/05/23 09:43 12/05/23 09:43 12/05/23 09:43 12/05/23 09:43 12/05/23 09:43 Lab Results Blood Type / Crossmatch: No Data to Display Complete Blood Count: No Data to Display Complete Metabolic Panel: No Data to Display Liver Function Panel: No Data to Display Coagulation Panel: No Data to Display Cardiac Panel: No Data to Display Arterial Blood Gas: No Data to Display Venous Blood Gas: No Data to Display Pancreas Panel: No Data to Display Thyroid Panel: No Data to Display Infectious Disease: No Data to Display Blood Cultures: No Data to Display Toxicology Panel: No Data to Display Anesthesia Assessment and Plan Anesthesia History Personal History: No History of Anesthesia Complications Family History: No Family History of Anesthesia Complications Exercise Tolerance Exercise Tolerance: Metabolic Equivalents>4 Pertinent Negatives Pertinent Negatives: No Symptoms of GERD, No Major Cardiovascular Symptoms or Complaints, No Major Pulmonary Symptoms or Complaints and No History of CVA/TIA Cardiac & Pulmonary Exam Cardiac Exam: Normal S1/S2 Heart Sounds Pulmonary Exam: Clear Bilateral Breath Sounds Implantable Cardiac Device Does patient have a Pacemaker or an ICD?: No Airway Exam Known Difficult Airway: No Mallampati Class: 1 Mouth Opening: Normal (> 3cm) Thyromental Distance: Greater than 3 cm Neck Range of Motion: Full ROM Neck Circumference: Normal Teeth Condition: Normal Dentition ASA Classification ASA Score: ASA 2 Emergency Case?: No NPO Status NPO Status: NPO Clears >2 hours, Solids >8 hours Anesthesia Plan Resuscitation Status: Full Code Anesthesia Technique: General Anesthesia Airway Planned: LMA Pain Management: Surgeon and patient request nerve block Monitors Used: Standard Monitors
[2023-12-05] MEDS: ceFAZolin 2 GM/50 ML BAG IVPB (11:52)
[2023-12-05] MEDS: TRANEXAMIC ACID/SOD. CHL. 1,000 MG/100 ML BAG 600 MG IVPB (12:13)
--- NOTE | 2023-12-05 12:52 | W.ANESNERVE ---
Nerve Block Single Injection Procedure Date and Time Date Performed: 12/05/23 Procedure Start: 11:10 Location Where Procedure Performed Procedure Location: Day Surgery Unit Reason Performed: Postoperative Analgesia Requesting Provider: Drew Clinton Timeout Performed Timeout Performed: Yes Monitoring Used ECG, Blood Pressure, SpO2 and See EMR for corresponding vital signs Sterility Sterility: Hand Hygiene, Surgical Cap, Surgical Mask, Sterile Gloves and Chlorhexidine Sedation Given During Procedure Sedation Given (Indicate Dose Given): Versed IV Dose:: 2mg Patient Mental Status Patient Mental Status: Sedate with meaningful communication Nerve Block 1st Nerve Block: Laterality: Left Block Type: Adductor Canal Ultrasound Image Saved?: Yes Needle / Catheter Used: 100mm SonoPlex II Local Anesthetic Bolus (Indicate Dose Given): Lidocaine used for local infiltration of skin, Injected in 3-5ml increments after negative blood aspiration, Bupivacaine 0.25% Dose:: 10mL and Exparel Dose:: 10mL Additives (Indicate Dose Given): None Ultrasound: Sterile probe cover and gel used Nerve Stimulator: Supplement to Ultrasound use Paresthesia: None Procedure Tolerated: No Complications and Patient tolerated well Procedure Outcome: Successful Performed By: Nona Mason Supervised By: Ingris Davis
[2023-12-05] MEDS: EPINEPHrine 10 MG/10 ML ML (14:04)
--- NOTE | 2023-12-05 15:26 | W.ANESPOSTOP ---
Postoperative Evaluation Date, Time and Location Date Performed: 12/05/23 Time Performed: 15:26 Patient Location: PACU Vital Signs Most Recent Imported Vital Signs: Most Recent Vital Signs Temp Pulse Resp BP Pulse Ox 36.5 C 48 L 12 119/58 L 99 12/05/23 15:19 12/05/23 15:19 12/05/23 15:19 12/05/23 15:19 12/05/23 15:19 Pain Score Most Recent Pain Score: Most Recent Pain Score Pain Level 2 12/05/23 11:10 Assessment Mental Status: Arousable with meaningful communication Airway and Respiratory Function: Patent airway with normal (patient baseline) respiratory exam Cardiovascular Function: Hemodynamically Stable Hydration Status: Adequately Hydrated Nausea & Vomiting: No Nausea or Vomiting Pain: Pain is tolerable per patient Peripheral Nerve Block: Regional nerve block not resolved at time of post operative discharge
== END 2023-12-05 16:56 | disposition home or self-care (01) ==
LOC: SUR 09:25
PROVIDERS: Visit Provider Student in an Organized Health Care Education/Training Program
PROC: (CPT 29888; principal; 2023-12-05 11:45)
DX: S83.512A Sprain of anterior cruciate ligament of left knee, initial encounter (principal); S83.282A Other tear of lateral meniscus, current injury, left knee, initial encounter; V86.56XA Driver of dirt bike or motor/cross bike injured in nontraffic accident, initial encounter; Y93.55 Activity, bike riding
CPT/HCPCS: 29888; 29881; 20680; 76942; C9290; J0131; J0665; J0690; J1100; J1885; J2001; J2250; J2405; J2704; J3370